=== PATIENT | female | born 1980 | race Caucasian/White ===

== ENCOUNTER → 2018-03-19 | Day surgery (SDC) | payer OTHER ==
[~2018-03-19] VITALS: Ht 162.6 cm; Wt 52.8 kg
[~2018-03-19] MED LIST: *diphenhydrAMINE HCL 50 MG/ML VIAL PERIprocedural Use ONLY ONE; *morphine SULFATE 4 MG/ML PERIprocedure ONLY ONE; ACETAMINOPHEN 1000 MG/100 ML 100 ML IV ONE; AMBI10TA PO; BUPIVACAINE HCL PF 0.5% 30 ML VIAL ONE; BUTATAB6 PO; CHLORHEXIDINE GLUCONATE 2 % 1 PACK (2 CLOTHS) TOPICAL PRN; CLINDAMYCIN 600 MG/NS PREMIX 50 ML IV SCH; DEXAMETHASONE SOD PHOS 4 MG/ML VIAL IV ONE; DICY20TA10 PO; DO NOT ADM ANY ANTICOAGULANT DRUGS PRN; FAMOTIDINE 20 MG/2 ML VIAL IV ONE; GLYCOPYRROLATE 1 MG/5 ML SYRINGE IV PUSH ONE; INSULIN HUMAN REGULAR 1,000 UNITS/10 ML VIAL SQ PRN; KETOROLAC TROMETHAMINE 30 MG/ML (IVP) VIAL IV PUSH ONE; LACTATED RINGER'S 1000 ML INJ 1,000 ML IV ONE; LACTATED RINGER'S 1000 ML IV PRN; LIDOCAINE HCL 1% PF 5 ML SYRINGE OTHER ONE; MECL-62 PO; MEPERIDINE HCL 25 MG/ML VIAL ONE; METOPROLOL TARTRATE 25 MG TAB PO PRN; MIDAZOLAM HCL 2 MG/2 ML VIAL IV ONE; MIDAZOLAM HCL 2 MG/2 ML VIAL ONE; NEOSTIGMINE 5 MG/5 ML SYRINGE IV PUSH ONE; ONDANSETRON HCL 4 MG/2 ML VIAL IV PUSH ONE; ONDANSETRON HCL 4 MG/2 ML VIAL IV PUSH PRN; POVIDONE IODINE 5% (ANTISEPSIS KIT) 4 APPLICATIONS EACH NARE PRN; PROPOFOL 200 MG/20 ML AMP IV ONE; RANI150T PO; RIZA10TA2 PO; ROCURONIUM INJ 50 MG/5 ML SYRINGE IV PUSH ONE; SODIUM CHLORID 0.9% 500 ML IV PRN; VASOPRESSIN 20 UNITS/ML VIAL ONE; XANA1TAB2 PO; ZOFR8TAB PO; fentaNYL CITRATE 250 MCG/5 ML AMP ONE; oxyCODONE/ACETAMINOPHEN 10 MG/325 MG TAB PO PRN; oxyCODONE/ACETAMINOPHEN 5 MG/325 MG TAB PO PRN
--- NOTE | 2018-03-19 07:49 | PD.OP ---
Operative Report Date of Surgery: March 19, 2018 Preoperative Diagnosis: (1) Complex cyst of right ovary (2) Deep dyspareunia (3) Pelvic and perineal pain Postoperative Diagnosis: (1) Complex cyst of right ovary (2) Deep dyspareunia (3) Pelvic and perineal pain (4) Pelvic peritoneal adhesions, female Procedure: 1. lysis of adhesions 2. laparoscopic bilateral salpingo-oophorectomy Anesthesia: ELOISE Surgeon: Geovanna Rapp [employer] Machine Operator(s): OR Staff Operation and Findings: IVF: 1 liter + IV antibiotics given prior to surgery EBL: 25 ml UO: 100 ml Findings: 1. multiple pelvic adhesions involving large bowel, pelvis and abdominal ibrahim 2. B enlarged fallopian tubes 3. normal ovaries Specimens: fallopian tubes and ovaries Complications: none Condition: stable Disposition: PACU Descriptions of the procedure: I discussed the risks, benefits and alternatives of the procedure with the patient. Informed consent was obtained after questions were answered. She was then taken to the operating room with her IV running. She was placed in the supine position and was given general anesthesia without difficulties or complications. She was then placed in the dorsal lithotomy position and was prepped and draped in the usual sterile fashion. A vertical umbilical incision was made with the scalpel. A 5 mm trocar was introduced inside the patient's abdomen under direct visualization. A pneumo- peritoneum was created with CO2 gas. One 5 mm trocar and one 10 mm trocar were introduced inside the patient's abdomen under direct visualization in the lower left, and mid abdomen. A survey of the patient's abdomen revealed normal anatomy. A survey of the patient's pelvis revealed the findings noted above. Lysis of adhesions was needed in order to proceed with surgery. Both fallopian tubes were noted to be fluid filled, enlarged, with several paratubal cysts. The infundibulopelvic ligaments were carefully and serially grasped, electrocauterized and cut with the Harmonic scalpel. Excellent hemostasis was noted. The tissues were carefully removed inside an endo bag and sent to Pathology. The surgical sites were noted to be hemostatic. Copious irrigation was done. All of the instruments were removed from the patient's abdomen. The ports were also removed under direct visualization. Excellent hemostasis was noted. The CO2 gas was carefully expressed out of the patient's abdomen. The 10 mm fascial incision was reapproximated with a figure eight stitch of 0-Vicryl. The skin incisions were injected with 0.5 % Marcaine and were reapproximated with subcutaneous stitches of 4-0 Vicryl. Mastisol and steri strips were placed over the incisions. The patient tolerated the procedure well. She was successfully extubated and transferred to PACU in stable condition. Note: I discussed surgical procedures and surgical findings with patient's . His questions were answered. He verbalized understanding. Geovanna Rapp MD March 19, 2018 07:49
[2018-03-19 18:04] VITALS: BP 121/69; PULSE 54; RESP 16; TEMP 97.6; O2SAT 100
== END | disposition home or self-care (01) ==
LOC: HSDC 12:18
PROVIDERS: ATTEND Obstetrics & Gynecology
DX: N83.02 Follicular cyst of left ovary (principal); N83.01 Follicular cyst of right ovary; N73.6 Female pelvic peritoneal adhesions (postinfective); N83.8 Other noninflammatory disorders of ovary, fallopian tube and broad ligament
CPT/HCPCS: 00840; 58661; 88305; J0131; J1100; J1200; J1885; J2175; J2250; J2270; J2405; J2710; J3010; J7120